=== PATIENT | male | born 1985 | race Caucasian/White ===

== ENCOUNTER 2018-10-09 23:53 | Emergency (ER) | payer BC ==
[2018-10-10] MEDS ORDERED: NORMAL SALINE 1000 ML 1,000 ML IV ONE (00:26)
--- NOTE | 2018-10-10 00:29 | ER Document Report ---
ED General - General Chief Complaint: Bloody Stools Stated Complaint: ANAL BLEEDING Time Seen by Provider: 10/10/18 00:19 Notes: Patient is a pleasant 33-year-old male presents with complaint of some rectal bleeding. This started today after he was chopping wood. He said he started noticing some left-sided abdominal pain and then he started passing blood in his stool. Said he passed some clots. He says the last passage of blood was approximately 5 minutes ago but it seems to be decreasing. He said last time he is about them is more just some flecks of blood and some gas. He has a history of IBS. Does have history of previous colon polyps. A colonoscopy in 2016 was removed one polyp. No history of colon cancer. Does have a history of hemorrhoids but says this feels different than just hemorrhoidal bleeding. No fevers. No vomiting. No other complaints at this time. He is not currently on blood thinners. TRAVEL OUTSIDE OF THE [place] IN LAST 30 DAYS: No - Related Data Allergies/Adverse Reactions: No Known Allergies Allergy (Verified 08/21/16 13:50) Past Medical History - Social History Smoking Status: Never Smoker Frequency of alcohol use: None Drug Abuse: None Family History: Reviewed & Not Pertinent - Past Medical History Cardiac Medical History: Denies: Hx Coronary Artery Disease, Hx Heart Attack, Hx Hypertension Pulmonary Medical History: Denies: Hx Asthma, Hx Bronchitis, Hx COPD, Hx Pneumonia Neurological Medical History: Denies: Hx Cerebrovascular Accident, Hx Seizures Musculoskeletal Medical History: Denies Hx Arthritis - Immunizations Hx Diphtheria, Pertussis, Tetanus Vaccination: Yes Review of Systems - Review of Systems Notes: My Normal Review Basic REVIEW OF SYSTEMS: CONSTITUTIONAL : Denies fever, chills, or sweats. Denies recent illness. EENT: Denies eye, ear, throat, or mouth pain or symptoms. Denies nasal or sinus congestion. RESPIRATORY: Denies cough, cold, or chest congestion. Denies shortness of breath, difficulty breathing, or wheezing. GASTROINTESTINAL: Some left-sided abdominal pain. Some rectal bleeding. MUSCULOSKELETAL: Denies neck or back pain or joint pain or swelling. SKIN: Denies rash or skin lesions. HEMATOLOGIC : Denies easy bruising or bleeding. NEUROLOGICAL: Denies altered mental status or loss of consciousness. Denies headache. Denies weakness or paralysis or loss of use of either side. Denies problems with gait or speech. Denies sensory or motor loss. ALL OTHER SYSTEMS REVIEWED AND NEGATIVE. Physical Exam - Vital signs Vitals: Temp Pulse Resp BP Pulse Ox 97.5 F 64 18 128/92 H 96 10/10/18 00:01 10/10/18 00:01 10/10/18 00:01 10/10/18 00:01 10/10/18 00:01 - Notes Notes: General Appearance: Well nourished, alert, cooperative, no acute distress, no obvious discomfort. Well Appearing. Vitals: reviewed, See vital signs table. Head: no swelling or tenderness to the head Eyes: PERRL, EOMI, Conjuctiva clear Mouth: No decreasd moisture Lungs: No wheezing, No rales, No rhonci, No accessory muscle use, good air exchange bilaterally. Heart: Normal rate, Regular rythm, No murmur, no rub Abdomen: Normal BS, soft, No rigidity, mild left-sided abdominal tenderness is worse over the left lower quadrant., No guarding, no rebound, no abdominal masses, no organomegaly Rectal: Some internal hemorrhoids which were not actively bleeding at this time. Extremities: good pulses in all extremities, no swelling or tenderness in the extremities, no edema. Skin: warm, dry, appropriate color, no rash Neuro: speech clear, oriented x 3, normal affect, responds appropriately to questions. Course - Re-evaluation Re-evalutation: 10/10/18 02:27 Patient has had any further passing of clots. He says he is used meth a few more times and is just small flecks of blood. I suspect the most likely has a colon polyp likely had some bleeding but this stopped now. I informed them his stools probably passed a small flecks of blood for the next 12-24 hours. After that should be completely clear. Encouraged him to return to ER immediately if he has recurrent passing of clots or increasing bleeding. His pain is improved. Looks well. CT scan does not show any signs of infection or inflammation. His hemoglobin is normal and his white blood cell count is normal. We will have him follow back up with Dr. Bobo for reevaluation and to discuss whether or not repeat colonoscopy is good. Patient agrees with plan will be discharged home. Dictation of this chart was performed using voice recognition software; therefore, there may be some unintended grammatical errors. - Vital Signs Vital signs: Temp Pulse Resp BP Pulse Ox 97.5 F 64 18 128/92 H 96 10/10/18 00:01 10/10/18 00:01 10/10/18 00:01 10/10/18 00:01 10/10/18 00:01 - Laboratory Result Diagrams: 10/10/18 00:31 10/10/18 00:31 Laboratory results interpreted by me: 10/10/18 10/10/18 00:31 00:31 RBC 4.30 L BUN 25 H Discharge - Discharge Clinical Impression: Rectal bleeding Abdominal pain Qualifiers: Abdominal location: left lower quadrant Qualified Code(s): R10.32 - Left lower quadrant pain Condition: Good Disposition: HOME, SELF-CARE Additional Instructions: Please call Dr. Bobo's office to make a follow up appointment for reevaluation and discuss whether or not you need to have a repeat colonoscopy. Please return to the ER immediately if you have increasing bleeding, fevers, worsening abdominal pain, or feel unwell in any way. Referrals: [facility] [Primary Care Provider] - Follow up as needed YON BOBO MD [ACTIVE STAFF] - Follow up in 3-5 days (PLease call the office in the morning to make a follow up appointment)
[2018-10-10 00:47] LABS: ABSOLUTE BASOPHILS # (AUTO) 0.1 10^3/uL (0.0-0.2); ABSOLUTE EOSINOPHILS # (AUTO) 0.2 10^3/uL (0.0-0.6); ABSOLUTE MONOCYTES (AUTO) 0.8 10^3/uL (0.1-1.4); ABSOLUTE NEUT (AUTO) 5.7 10^3/uL (1.7-8.2); BASOPHILS % (AUTO) 0.9 % (0-2); HEMATOCRIT 39.5 % (37.9-51.0); LYMPHOCYTES % (AUTO) 30.6 % (13-45); MEAN CORPUSCULAR HEMOGLOBIN 32.6 pg (27.0-33.4); MEAN CORPUSCULAR HGB CONC 35.5 g/dL (32.0-36.0); MEAN CORPUSCULAR VOLUME 92 fl (80-97); MONOCYTES % (AUTO) 8.1 % (3-13); PLATELET COUNT 270 10^3/uL (150-450); RED CELL DISTRIBUTION WIDTH 13.3 % (11.5-14.0); SEGMENTED NEUTROPHILS % (AUTO) 58.4 % (42-78); TOTAL CELLS COUNTED % (AUTO) 100 %; WHITE BLOOD COUNT 9.8 10^3/uL (4.0-10.5)
[2018-10-10 01:06] LABS: ANION GAP 9 (5-19); BLOOD UREA NITROGEN 25 mg/dL (7-20); CARBON DIOXIDE 30 mmol/L (22-30); CHLORIDE 105 mmol/L (98-107); GLUCOSE 83 mg/dL (75-110); POTASSIUM 4.1 mmol/L (3.6-5.0); SODIUM 143.5 mmol/L (137-145)
--- NOTE | 2018-10-10 01:11 | RADIOLOGY REPORT (SQ) ---
CLINICAL HISTORY: rectal bleeding, left sided abdominal pain COMPARISON: None. TECHNIQUE: CT ABDOMEN PELVIS WITHOUT THEN WITH IV CONTRAST on 10/10/2018 12:25 AM [employer] This exam was performed according to our departmental dose-optimization program, which includes automated exposure control, adjustment of the mA and/or kV according to patient size and/or use of iterative reconstruction technique. FINDINGS: Lower lungs are clear. Abdomen: The liver is normal in appearance. There is no biliary dilatation. Gallbladder is decompressed. The pancreas and spleen are normal in appearance. The adrenal glands and kidneys are unremarkable. Abdominal aorta is normal in course and caliber without aneurysm. There is no free air. There is no retroperitoneal adenopathy.There is a small fat-containing umbilical hernia. Pelvis: There is no bowel obstruction. Urinary bladder is unremarkable. There is no free fluid. Appendix is normal. Skeleton: There are no acute osseous findings. No suspicious bony lesions. IMPRESSION: No acute inflammatory process. No renal or ureteral calculi.
[2018-10-10 02:42] VITALS: BP 114/84
== END 2018-10-10 02:42 | disposition home or self-care (01) ==
LOC: ER 23:53
DX: K62.5 Hemorrhage of anus and rectum (principal); R10.32 Left lower quadrant pain; K64.8 Other hemorrhoids; Z86.010 Personal history of colon polyps; Z87.19 Personal history of other diseases of the digestive system
CPT/HCPCS: 99284; 36415; 85025; 80048; 74178; J7030